=== PATIENT | female | born 1980 | race Caucasian/White ===

== ENCOUNTER 2016-12-06 01:29 | Observation (INO) | payer SELFPAY ==
[~2016-12-06] VITALS: Ht 165.1 cm; Wt 75.0 kg
[~2016-12-06 01:29] MED LIST: CYCL-36 PO; DIAZ5 PO; DICL50TA3 PO
[2016-12-06 01:32] VITALS: BP 160/85; PULSE 100; RESP 20; TEMP 97.6; O2SAT 99
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
[2016-12-06] MEDS ORDERED: ASPIRIN 81 MG CHEW TAB CHEW ONE (02:30)
[2016-12-06 02:48] VITALS: RESP 18
--- NOTE | 2016-12-06 02:48 | RADRPT ---
EXAM DATE/TIME: 12/06/2016 02:31 [place] COMPARISON: No previous studies available for comparison. INDICATIONS : Shortness of breath. MEDICAL HISTORY : None. SURGICAL HISTORY : None. ENCOUNTER: Initial ACUITY: 1 day PAIN SCORE: 0/10 LOCATION: Bilateral chest FINDINGS: A single view of the chest demonstrates the lungs to be symmetrically aerated without evidence of mas s, infiltrate or effusion. The cardiomediastinal contours are unremarkable. Osseous structures are intact. CONCLUSION: No evidence of acute cardiopulmonary disease. Erik Krishnamurthy MD on December 06, 2016 at 2:47 Board Certified Radiologist. This report was verified electronically.
[2016-12-06 02:58] LABS: AUTOMATED NEUTROPHIL # 5.4 TH/MM3 (1.8-7.7); BASOPHIL % 0.3 % (0.0-2.0); EOSINOPHIL # 0.2 TH/MM3 (0-0.4); EOSINOPHIL % 1.7 % (0.0-4.0); HEMO FLAGS DIFF FINAL; LYMPH % 32.1 % (9.0-44.0); LYMPHOCYTE # 2.9 TH/MM3 (1.0-4.8); MEAN CELL VOLUME 86.6 FL (80.0-100.0); MEAN CORPUSCULAR HEMOGLOBIN 29.5 PG (27.0-34.0); MEAN CORPUSCULAR HGB CONC 34.1 % (32.0-36.0); NEUT % 58.9 % (16.0-70.0); PLATELET COUNT 262 TH/MM3 (150-450); RED BLOOD COUNT 3.92 MIL/MM3 (4.00-5.30); WHITE BLOOD COUNT 9.2 TH/MM3 (4.0-11.0)
[2016-12-06 03:09] LABS: BACTERIA, URINE OCC /hpf; BLOOD, URINE LARGE (NEG); GLUCOSE,URINE NEG (NEG); KETONE, URINE NEG (NEG); MUCUS URINE FEW /lpf (OCC); NITRITE,URINE NEG (NEG); PH, URINE 5.5 (5.0-8.5); SQUAMOUS EPITHELIAL CELL URINE 24 /hpf (0-5); TRANSITIONAL EPI CELLS, URINE <1 /hpf; URINE COLOR YELLOW (YELLW/STRAW)
[2016-12-06 03:12] LABS: ANION GAP 4 MEQ/L (5-15); AST (GOT) 12 U/L (15-37); BLOOD UREA NITROGEN 11 MG/DL (7-18); CHLORIDE 106 MEQ/L (98-107); GLOMERULAR FILTRATION RATE 143 ML/MIN (>89); MAGNESIUM 2.1 MG/DL (1.5-2.5); POTASSIUM 3.8 MEQ/L (3.5-5.1); SODIUM (NA) 137 MEQ/L (136-145)
[2016-12-06 03:13] VITALS: BP 127/60; PULSE 79; RESP 18; O2SAT 98
[2016-12-06 03:14] LABS: APTT (PATIENT) 26.5 SEC (24.3-30.1); PROTHROMBIN TIME - PATIENT 10.5 SEC (9.8-11.6)
[2016-12-06 03:14] LABS: COMMENT (UR) CULT NOT INDICATED; CULTURE IF INDICATED CULT NOT INDICATED
[2016-12-06 03:21] LABS: ALKALINE PHOSPHATASE 112 U/L (45-117); ALT (GPT) 18 U/L (10-53); TOTAL BILIRUBIN ADULT 0.3 MG/DL (0.2-1.0)
[2016-12-06 03:22] LABS: ACETAMINOPHEN LESS THAN 2.0 MCG/ML (10.0-30.0); ALCOHOL LESS THAN 3 MG/DL (0-5); CREATINE KINASE 48 U/L (26-192)
[2016-12-06] MEDS ORDERED: SODIUM CHLORIDE 0.9% FLUSH 10 ML FLUSH IV FLUSH PRN (04:45)
[2016-12-06] MEDS ORDERED: ACETAMINOPHEN 500 MG CPLT PO PRN (04:45)
[2016-12-06 06:29] VITALS: BP 113/58; PULSE 81; RESP 18; TEMP 98; O2SAT 100
[2016-12-06 06:46] LABS: CREATINE KINASE 29 U/L (26-192)
[2016-12-06 07:33] VITALS: O2SAT 99
--- NOTE | 2016-12-06 07:51 | HHI.HP ---
HPI Primary Care Physician No Primary Care Physician Chief Complaint Chest pain History of Present Illness 36 year old female with past medical history of IVDA presents to the ER for further evaluation of chest pain. Onset between 1-2 am. Location substernal. Characterized as an "elephant on my chest was sharp pains." No radiation of pain. No associated symptoms of nausea, vomiting, or diaphoresis. Endorses rapid breathing when pain first began. No known precipitating or relieving factors. Denies any recent injury, cough, fever, or chills. Taking a deep breath does not make pain better or worse. Laying on one of her side makes pain better. Endorses heroine use, last used 10 PM. Review of Systems General: No fatigue,weakness, fever, chills, or recent illness. HEENT: No ANTON, CV: As stated above. No palpitations or dizziness. RESP: No SOB, cough, or production GI: No nausea, vomiting, or bowel changes. 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 MS: No change in ROM, injury, trauma, or recent fall NEURO: No change in memory, dizziness, difficulty with balance, LOC, motor/ sensory deficits PSYCH: No anxiety, depression, or suicidal ideation. SKIN: No rashes, no concerning lesions Past Family Social History Allergies: Coded Allergies: ketorolac (Unverified Allergy, Mild, 12/06/16) "GOT ITCHY" Past Medical History ADHD, IV drug user Past Surgical History Reported Medications Reported Meds & Active Scripts Active None Active Ordered Medications Current Medications Medications (Trade) Dose Ordered Sig/Jhon Route Start Time Stop Time Status Last Admin (NS Flush) 2 ml UNSCH PRN IV FLUSH 12/06/16 04:45 (NS Flush) 2 ml BID IV FLUSH 12/06/16 09:00 (Tylenol) 500 mg Q4H PRN PO 12/06/16 04:45 (Pepcid) 20 mg BID PO 12/06/16 09:00 Family History Noncontributory for early onset cardiovascular disease Social History No known diabetes, hypertension, hyperlipidemia. Lifelong smoker. 1/2 pack daily. Endorses IV heroin last used 10 PM last night. Self-employed as a caregiver. Past cardiac testing None Physical Exam Vital Signs Vital Signs Date Time Temp Pulse Resp B/P (MAP) Pulse Ox O2 Delivery O2 Flow Rate FiO2 12/06/16 07:33 99 21 12/06/16 06:29 98.0 81 18 113/58 (76) 100 12/06/16 05:50 12/06/16 03:13 79 18 127/60 (82) 98 Room Air 12/06/16 02:48 18 12/06/16 01:32 97.6 100 20 160/85 (110) 99 Room Air Physical Exam GENERAL: Alert WN, WD, NAD, female who appears older than stated age HEAD: NC, AT CV: RRR, without murmur, rub, gallop, no JVD, S1-S2 no S3-S4. Chest wall tenderness easily reproduced with palpation. RESP: Clear lungs throughout bilateral, no crackles, wheeze, rhonchi, symmetrical chest rise, nonlabored, able to speak in full sentences ABD: Soft, NT, ND, no masses, positive bowel tones BACK: No CVAT, no scoliosis EXT: Pulses +24, no dependent edema MS: Normal tone 4 extremities, no obvious deformities, full range of motion NEURO: CN II through CN XII grossly intact, motor strength 5/5 PSYCH: A+O 3, flat affect, appropriate speech, insight and judgment SKIN: Normal turgor, normal texture, even hair distribution, multiple tattoos Laboratory Laboratory Tests Test 12/06/16 02:34 12/06/16 02:45 12/06/16 02:50 12/06/16 06:05 White Blood Count 9.2 Red Blood Count 3.92 Hemoglobin 11.6 Hematocrit 34.0 Mean Corpuscular Volume 86.6 Mean Corpuscular Hemoglobin 29.5 Mean Corpuscular Hemoglobin Concent 34.1 Red Cell Distribution Width 15.0 Platelet Count 262 Mean Platelet Volume 8.1 Neutrophils (%) (Auto) 58.9 Lymphocytes (%) (Auto) 32.1 Monocytes (%) (Auto) 7.0 Eosinophils (%) (Auto) 1.7 Basophils (%) (Auto) 0.3 Neutrophils # (Auto) 5.4 Lymphocytes # (Auto) 2.9 Monocytes # (Auto) 0.6 Eosinophils # (Auto) 0.2 Basophils # (Auto) 0.0 CBC Comment DIFF FINAL Differential Comment Prothrombin Time 10.5 Prothromb Time International Ratio 1.0 Activated Partial Thromboplast Time 26.5 D-Dimer Quantitative (PE/DVT) 0.31 Blood Urea Nitrogen 11 Creatinine 0.49 Random Glucose 94 Total Protein 7.6 Albumin 3.8 Calcium Level 8.4 Magnesium Level 2.1 Alkaline Phosphatase 112 Aspartate Amino Transf (AST/SGOT) 12 Alanine Aminotransferase (ALT/SGPT) 18 Total Bilirubin 0.3 Sodium Level 137 Potassium Level 3.8 Chloride Level 106 Carbon Dioxide Level 27.0 Anion Gap 4 Estimat Glomerular Filtration Rate 143 Total Creatine Kinase 48 29 Troponin I LESS THAN 0.02 LESS THAN 0.02 B-Type Natriuretic Peptide LESS THAN 2 Lipase 99 Thyroid Stimulating Hormone 3rd Gen 1.450 Acetaminophen Level LESS THAN 2.0 Ethyl Alcohol Level LESS THAN 3 Erythrocyte Sedimentation Rate 19 Salicylates Level 2.7 Urine Color YELLOW Urine Turbidity HAZY Urine pH 5.5 Urine Specific [place] 1.027 Urine Protein 30 Urine Glucose (UA) NEG Urine Ketones NEG Urine Occult Blood LARGE Urine Nitrite NEG Urine Bilirubin NEG Urine Urobilinogen LESS THAN 2.0 Urine Leukocyte Esterase SMALL Urine RBC 2 Urine WBC 7 Urine Squamous Epithelial Cells 24 Urine Transitional Epithelial Cells <1 Urine Amorphous Sediment RARE Urine Bacteria OCC Urine Mucus FEW Microscopic Urinalysis Comment CULT NOT INDICATED Urine Opiates Screen NEG Urine Barbiturates Screen NEG Urine Amphetamines Screen NEG Urine Benzodiazepines Screen NEG Urine Cocaine Screen NEG Urine Cannabinoids Screen NEG Result Diagram: 12/06/1623312/06/16233 Course EKG , Sinus rhythm, normal axis, no ST or T-segment changes Caprini VTE Risk Assessment Caprini VTE Risk Assessment: No/Low Risk (score <= 1) Caprini Risk Assessment Model Point Value = 1 Point Value = 2 Point Value = 3 Point Value = 5 Age 41-60 Minor surgery BMI > 25 kg/m2 Swollen legs Varicose veins or History of unexplained or recurrent spontaneous Oral contraceptives or hormone replacement Sepsis (< 1 month) Serious lung disease, including pneumonia (< 1 month) Abnormal pulmonary function Acute myocardial infarction Congestive heart failure (< 1 month) History of inflammatory bowel disease Medical patient at bed rest Age 61-74 Arthroscopic surgery Major open surgery (> 45 min) Laparoscopic surgery (> 45 min) Malignancy Confined to bed (> 72 hours) Immobilizing plaster cast Central venous access Age >= 75 History of VTE Family history of VTE Factor V Leiden Prothrombin [id number] Lupus anticoagulant Anticardiolipin antibodies Elevated serum homocysteine Heparin-induced thrombocytopenia Other congenital or acquired thrombophilia Stroke (< 1 month) Elective arthroplasty Hip, pelvis, or leg fracture Acute spinal cord injury (< 1 month) Prophylaxis Regimen Total Risk Factor Score Risk Level Prophylaxis Regimen 0-1 Low Early ambulation 2 Moderate Order ONE of the following: *Sequential Compression Device (SCD) *Heparin 5000 units SQ BID 3-4 Higher Order ONE of the following medications: *Heparin 5000 units SQ TID *Enoxaparin/Lovenox 40 mg SQ daily (WT < 150 kg, CrCl > 30 mL/min) *Enoxaparin/Lovenox 30 mg SQ daily (WT < 150 kg, CrCl > 10-29 mL/min) *Enoxaparin/Lovenox 30 mg SQ BID (WT < 150 kg, CrCl > 30 mL/min) AND/OR *Sequential Compression Device (SCD) 5 or more Highest Order ONE of the following medications: *Heparin 5000 units SQ TID (Preferred with Epidurals) *Enoxaparin/Lovenox 40 mg SQ daily (WT < 150 kg, CrCl > 30 mL/min) *Enoxaparin/Lovenox 30 mg SQ daily (WT < 150 kg, CrCl > 10-29 mL/min) *Enoxaparin/Lovenox 30 mg SQ BID (WT < 150 kg, CrCl > 30 mL/min) AND *Sequential Compression Device (SCD) Assessment and Plan Assessment and Plan #1 Atypical chest pain- admitted to chest pain center. Ruled out with 2 sets of EKGs, cardiac enzymes, and monitored overnight. Seen and evaluated by Dr. Tyson Gaines. Proceed with exercise stress test this a.m. Unremarkable with discharge later this afternoon. Discomfort musculoskeletal, recommended Toradol. Patient reports allergy to Toradol, requesting an opiate. Discussed opiate not drug of choice for inflammatory pain, ibuprofen 800 mg by mouth ordered. 1000: Patient requesting to sign out AMA, does not want to complete exercise stress test before discharge. States "I haven't used any drugs since last night and I feel terrible and I am hungry." Unable to convince patient to stay for further cardiac testing. Edie Shankar Dec 06, 2016 07:51
[2016-12-06 08:00] VITALS: PULSE 86
[2016-12-06] MEDS ORDERED: IBUPROFEN 800 MG TAB PO ONE (09:00)
[2016-12-06] MEDS ORDERED: SODIUM CHLORIDE 0.9% FLUSH 10 ML FLUSH IV FLUSH SCH (09:00)
[2016-12-06] MEDS ORDERED: ONDANSETRON HCL 4 MG/2 ML VIAL IV PUSH PRN (09:00)
[2016-12-06] MEDS ORDERED: FAMOTIDINE 20 MG TAB PO SCH (09:00)
--- NOTE | 2016-12-06 13:41 | EKG ---
Date Performed: 12/06/2016 Time Performed: 06:20:29 PTAGE: 36 years EKG: Sinus rhythm NORMAL ECG NO PREVIOUS TRACING DOCTOR: Tyson Gaines Interpretating Date/Time 12/06/2016 13:40:08
--- NOTE | 2016-12-06 13:41 | EKG ---
Date Performed: 12/06/2016 Time Performed: 08:36:18 PTAGE: 36 years EKG: Sinus rhythm LOW QRS VOLTAGE IN PRECORDIAL LEADS BORDERLINE ECG PREVIOUS TRACING : 12/06/2016 06.20 Since previous tracing, no significant change noted DOCTOR: Tyson Gaines Interpretating Date/Time 12/06/2016 13:40:01
--- NOTE | 2016-12-06 13:42 | EKG ---
Date Performed: 12/06/2016 Time Performed: 01:49:34 PTAGE: 36 years EKG: SINUS TACHYCARDIA ABNORMAL RHYTHM ECG INTERPRETATION BASED ON A DEFAULT AGE OF 40 YEARS NO PREVIOUS TRACING DOCTOR: Tyson Gaines Interpretating Date/Time 12/06/2016 13:40:38
== END 2016-12-06 12:08 | disposition left against medical advice (07) ==
LOC: NEPE 01:29 → NEDA 03:57 → NEPHCDU 06:12
PROVIDERS: ADMIT Internal Medicine Interventional Cardiology; ATTEND Internal Medicine Interventional Cardiology
DX: R07.9 Chest pain, unspecified (principal); R06.02 Shortness of breath; R42 Dizziness and giddiness; F17.210 Nicotine dependence, cigarettes, uncomplicated; R09.89 Other specified symptoms and signs involving the circulatory and respiratory systems; R05 Cough; M54.40 Lumbago with sciatica, unspecified side; F11.90 Opioid use, unspecified, uncomplicated; F90.9 Attention-deficit hyperactivity disorder, unspecified type; R00.0 Tachycardia, unspecified; R94.31 Abnormal electrocardiogram [ECG] [EKG]
CPT/HCPCS: 71010; 80053; 80307; 81001; 82550; 83690; 83735; 83880; 84443; 84484; 84703; 85025; 85379; 85610; 85652; 85730; 93005; 96374; 99285; G0378; J2405